=== PATIENT | female | born 1970 | race Two or more races ===

== ENCOUNTER 2019-11-10 17:35 | Emergency (ER) | payer MEDICAID ==
[~2019-11-10] VITALS: Ht 154.9 cm; Wt 88.0 kg
[~2019-11-10 17:35] MED LIST: CYCL-1 PO; DIAZ2TAB PO; IBUP-1986 PO; ONDA4TAB12 PO
[2019-11-10] MEDS ORDERED: BACL-11 PO (18:52)
[2019-11-10] MEDS ORDERED: IBUP-1985 PO (18:53)
[2019-11-10 19:03] VITALS: BP 118/70
== END 2019-11-10 19:18 | disposition home or self-care (01) ==
LOC: ER 17:36
DX: S13.4XXA Sprain of ligaments of cervical spine, initial encounter (principal); Z90.710 Acquired absence of both cervix and uterus; Z79.899 Other long term (current) drug therapy; X58.XXXA Exposure to other specified factors, initial encounter; Y93.89 Activity, other specified; Y92.89 Other specified places as the place of occurrence of the external cause; Y99.8 Other external cause status
CPT/HCPCS: 99283